=== PATIENT | male | born 1995 | race American Indian/Alaskan Native ===

== ENCOUNTER 2017-10-02 17:17 | Emergency (ER) | payer OTHER ==
[2017-10-02 17:29] VITALS: BP 124/72; PULSE 86; RESP 16; TEMP 98.7; O2SAT 97
--- NOTE | 2017-10-02 18:58 | ED PDOC ---
Arrival/HPI - General Chief Complaint: Back Pain Time Seen by Provider: 10/02/17 17:36 Historian: Patient - History of Present Illness Narrative History of Present Illness (Text): 10/02/17 18:53 21yr old male presents today with upper and lower back pain. Patient states for the past 2 months he's been having low back pain and used to do heavy lifting at work. Patient states yesterday he was just sitting at the chair and developed an achy pain in the upper back. Patient states when he got home his grandmother applied icy hot and gave him some tumor. Patient states the pain has improved but he decided to come into the emergency room for evaluation. He denies chest pain or shortness of breath. Denies fevers or chills. Denies urinary symptoms. Denies dizziness or weakness. Patient states the pain is worse with movement. Denies numbness weakness tingling in the extremities. No other complaints Time/Duration: Other (yesterday) Past Medical History - Provider Review Nursing Documentation Reviewed: Yes - Travel History Have you recently traveled outside [place] w/in the past 3 mons?: No - Psychiatric Hx Psychophysiologic Disorder: No Hx Substance Use: Yes (CANNABIS) Family/Social History - Physician Review Nursing Documentation Reviewed: Yes Family/Social History: Unknown Family HX Smoking Status: Light Smoker < 10 Cigarettes Daily Hx Alcohol Use: No Hx Substance Use: Yes (CANNABIS) Allergies/Home Meds Allergies/Adverse Reactions: Allergies No Known Allergies Allergy (Verified 10/02/17 17:25) Review of Systems - Review of Systems Constitutional: absent: Fatigue, Fevers Respiratory: absent: SOB, Cough Cardiovascular: absent: Chest Pain, Palpitations Gastrointestinal: absent: Abdominal Pain, Nausea, Vomiting Genitourinary Male: absent: Dysuria, Frequency, Hematuria Musculoskeletal: Back Pain. absent: Arthralgias, Neck Pain Skin: absent: Rash, Pruritis Psychiatric: absent: Anxiety, Depression Physical Exam Vital Signs Reviewed: Yes Vital Signs Temp Pulse Resp BP Pulse Ox 10/02/17 17:25 98.7 F 86 16 124/72 97 Temperature: Afebrile Blood Pressure: Normal Pulse: Regular Respiratory Rate: Normal Appearance: Positive for: Well-Appearing, Non-Toxic, Comfortable Pain Distress: None Mental Status: Positive for: Alert and Oriented X 3 - Systems Exam Head: Present: Atraumatic Mouth: Present: Moist Mucous Membranes Neck: Present: Normal Range of Motion, Paraspinal Tenderness, Trachea Midline, Other (+ bilateral trapezius tenderness. ). No: MIDLINE TENDERNESS Respiratory/Chest: Present: Clear to Auscultation, Good Air Exchange. No: Respiratory Distress, Accessory Muscle Use Cardiovascular: Present: Regular Rate and Rhythm, Normal S1, S2. No: Murmurs Back: Present: Normal Inspection, Paraspinal Tenderness (+ minimal bilateral low lumbar paraspinal tenderness; no erythema; no edema, no eccymosis; full rom of back. ambulates with steady gait. ). No: Midline Tenderness Neurological: Present: GCS=15, Speech Normal Skin: Present: Warm, Dry Psychiatric: Present: Alert, Oriented x 3 Medical Decision Making ED Course and Treatment: 10/02/17 19:02 Patient nontoxic well-appearing in no distress with stable vital signs. Toradol IM pt reassessment; sleeping in er; waiting for xrays. cxr; wnl ls spine xray; no fracture Patient reassessment: Feeling better with medications ambulating with a steady gait. Muscle strength 5 out of 5 bilaterally. I advised to followup with the orthopedist within the next 2 days. Return if symptoms worsen persist or new symptoms develop Impression: Back pain Motrin every 6 hours as needed for pain Flexeril one tablet every 8 hours as needed for muscle spasms: May cause drowsiness Followup with the orthopedist within the next 2 days Followup with primary care physician within the next 2 days Return if symptoms worsen persist or if new symptoms develop 10/02/17 19:54 - RAD Interpretation Radiology Orders: 10/02/17 17:46 CHEST TWO VIEWS (PA/LAT) [RAD] Stat LS SPINE WITH OBL > 18 YRS OLD [RAD] Stat - Medication Orders Current Medication Orders: Discontinued Medications Ketorolac Tromethamine (Toradol) 60 mg IM STAT STA Stop: 10/02/17 17:47 Last Admin: 10/02/17 18:15 Dose: 60 mg MAR Pain Assessment Document 10/02/17 18:15 [facility]CS (Rec: 10/02/17 18:15 [facility] [id number][place] Pain Reassessment Is this a pain reassessment? Yes Sleep Is patient sleeping during reassessment? No Presence of Pain Presence of Pain Yes IM Administration Charges Document 10/02/17 18:15 OCS (Rec: 10/02/17 18:15 [facility] [id number]) Charges for Administration # of IM Administrations 1 Disposition/Present on Arrival - Present on Arrival Any Indicators Present on Arrival: No History of DVT/PE: No History of Uncontrolled Diabetes: No Urinary Catheter: No History of Decub. Ulcer: No History Surgical Site Infection Following: None - Disposition Have Diagnosis and Disposition been Completed?: Yes Diagnosis: Back pain Disposition: HOME/ ROUTINE Disposition Time: 19:55 Patient Plan: Discharge Patient Problems: Current Active Problems Problem Status Onset Back pain Acute Condition: GOOD Discharge Instructions (ExitCare): Back Pain (ED) Additional Instructions: Motrin every 6 hours as needed for pain Flexeril one tablet every 8 hours as needed for muscle spasms: May cause drowsiness Followup with the orthopedist within the next 2 days Followup with primary care physician within the next 2 days Return if symptoms worsen persist or if new symptoms develop Prescriptions: Cyclobenzaprine [Cyclobenzaprine HCl] 10 mg PO Q8 #10 tab Ibuprofen [Motrin] 600 mg PO Q6H PRN #20 tab PRN Reason: pain/fever reduction Referrals: Toño Estrada MD [Primary Care Provider] - Follow up with primary Adal Tena MD [Staff Provider] - Follow up with primary Jose Alamo MD [Staff Provider] - Follow up with primary Forms: [employer] ([employer]), WORK NOTE
--- NOTE | 2017-10-03 09:20 | RAD ---
PROCEDURE: Radiographs of the Lumbar Spine. HISTORY: back pain COMPARISON: No prior. FINDINGS: BONES: Normal alignment. No listhesis. No fracture. DISC SPACES: Unremarkable. OTHER FINDINGS: None. IMPRESSION: Unremarkable radiographs of the lumbar spine.
--- NOTE | 2017-10-03 09:21 | RAD ---
HISTORY: back pain COMPARISON: No prior. TECHNIQUE: Chest PA and lateral FINDINGS: LUNGS: No active pulmonary disease. PLEURA: No significant pleural effusion identified. No pneumothorax apparent. CARDIOVASCULAR: Normal. OSSEOUS STRUCTURES: No significant abnormalities. VISUALIZED UPPER ABDOMEN: Normal. OTHER FINDINGS: None. IMPRESSION: No active disease.
== END 2017-10-02 20:05 | disposition home or self-care (01) ==
LOC: ED 17:17
DX: M54.5 Low back pain (principal); F17.210 Nicotine dependence, cigarettes, uncomplicated
CPT/HCPCS: 71020; 72110; 96372; 99282; J1885

== ENCOUNTER 2018-08-09 23:52 | Emergency (ER) | payer OTHER | END 2018-08-10 01:18 | disposition left against medical advice (07) | LOC: ED 23:52 | DX: Z02.89 Encounter for other administrative examinations (principal); M54.9 Dorsalgia, unspecified ==